=== PATIENT | female | born 1990 | race Caucasian/White ===

== ENCOUNTER → 2021-08-08 | Day surgery (SDC) | payer OTHER ==
[~2021-08-08] VITALS: Ht 162.6 cm; Wt 62.1 kg
[~2021-08-08] MED LIST: BUSPAR 10MG10 MG PO; CYCLOBENZAPRINE10 MG PO; LAMICTAL100 MG PO; MINIPRESS CAP 11 MG PO; MIRENA1 EACH IY
[2021-08-08 10:25] LABS: HEMOGLOBIN 12.6 gm/dl (12.3-15.3); RED BLOOD COUNT 4.63 M/UL (4.00-5.10); WHITE BLOOD COUNT 12.4 K/UL (4.5-11.0)
== END | disposition home or self-care (01) ==
LOC: OR 09:38
PROVIDERS: Obstetrics & Gynecology
DX: G89.29 Other chronic pain (principal); R10.2 Pelvic and perineal pain; F17.200 Nicotine dependence, unspecified, uncomplicated; Z20.822 Contact with and (suspected) exposure to COVID-19; Z88.0 Allergy status to penicillin; Z91.040 Latex allergy status
CPT/HCPCS: 36415; 81001; 84702; 85025; C1769; J0585; J1100; J1580; J2001; J2250; J2405; J2704; J3010; J7120

== ENCOUNTER → 2022-03-06 | Outpatient (CLI) | payer OTHER | LOC: MRI 01-17 13:00 | DX: M54.50 Low back pain, unspecified (principal); G58.8 Other specified mononeuropathies; M62.89 Other specified disorders of muscle; R10.2 Pelvic and perineal pain; M79.604 Pain in right leg; M54.16 Radiculopathy, lumbar region | CPT/HCPCS: 72197; A9577 ==